=== PATIENT | female | born 1950 | race Caucasian/White ===

== ENCOUNTER 2021-08-30 11:58 | Emergency (ER) | payer MEDICARE, SELFPAY ==
[2021-08-30 13:09] VITALS: BP 160/88; PULSE 84; RESP 18; TEMP 36.4; O2SAT 93
--- NOTE | 2021-08-30 15:27 | PC.NURSE ---
Pt at intake desk,stating I'm going to take my name off the list and go home. Pt with wheeled walker ambulated out of Ed.
== END 2021-08-31 01:55 | disposition left against medical advice (07) ==
LOC: ANHED 16:22
PROVIDERS: PCP Internal Medicine
DX: M54.30 Sciatica, unspecified side (principal)
CPT/HCPCS: 99199